=== PATIENT | male | born 1945 | race Caucasian/White ===

== ENCOUNTER 2019-12-10 14:31 | Observation (INO) | payer BC, MEDICARE ==
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
[2019-12-10 15:45] LABS: #Basophils 0.1 thou/uL (0.0-0.2); #Eosinphils 0.1 thou/uL (0.0-0.7); #Lymphocytes 1.6 thou/uL (1.20-3.40); #Monocytes 0.6 thou/uL (0.11-0.59); #Neutrophils 7.6 thou/uL (1.40-6.50); %Basophils 1.1 % (0.0-1.0); %Eosinophils 1.2 % (0.0-10.0); %Lymphocytes 16.3 % (21.0-51.0); %Monocytes 5.5 % (0.0-10.0); Hemoglobin 14.7 g/dL (14.0-18.0); Mean Corpuscular HGB CONC 33.4 g/dL (32.0-36.0); Mean Corpuscular Hemoglobin 32.6 pg (27.0-31.0); Mean Corpuscular Volume 97.6 fL (78.0-98.0); Mean Platelet Volume 7.9 fL (7.4-10.4); Platelet Count 221 thou/uL (130-400); RBC Distribution Width 12.3 % (11.5-14.5); Red Blood Cell (RBC) Count 4.52 mill/uL (4.70-6.10)
[2019-12-10 16:01] LABS: PTT 34.1 SEC (22.9-36.1); Prothrombin Time 13.4 SEC (12.0-14.7)
[2019-12-10 16:14] LABS: ALT (SGPT) 32 U/L (8-55); AST (SGOT) 40 U/L (5-34); Albumin 4.4 g/dL (3.4-4.8); Alkaline Phosphatase 56 U/L (40-110); Anion Gap 15 mmol/L (10-20); BUN (Urea Nitrogen) 20 mg/dL (8.4-25.7); Bilirubin, Total 0.4 mg/dL (0.2-1.2); Calc. Creatinine Clearance 0 mL/min (70-130); Calcium 9.4 mg/dL (7.8-10.44); Carbon Dioxide 28 mmol/L (23-31); Chloride 105 mmol/L (98-107); Estimated GFR-MDRD 58; Globulin 2.4 g/dL (2.4-3.5); Glucose 90 mg/dL (83-110); Potassium 4.7 mmol/L (3.5-5.1); Protein, Total 6.8 g/dL (5.8-8.1); Sodium 143 mmol/L (136-145)
[2019-12-10] MEDS ORDERED: Dextrose 5% in Water 1,000 ML IV PRN (16:24)
[2019-12-10] MEDS ORDERED: Dextrose 50% Abboject 50 ML SYRINGE SLOW IVP PRN (16:24)
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
[2019-12-10 17:52] VITALS: BMI 23.7
[2019-12-10] MEDS: Acetaminophen 325 MG TAB PO PRN (18:38)
--- NOTE | 2019-12-10 19:59 | CT ---
Exam: Head CT without contrast HISTORY: Follow-up subarachnoid hemorrhage COMPARISON: 12/10/2019 FINDINGS: Hemorrhage: Stable linear hyperdensity along the medial sulcus along the right frontal lobe. No addit ional areas of subarachnoid hemorrhage are appreciated. No abnormal hyperdensity in the sylvian fissure or interpeduncular cisterns. Brain parenchyma: Cortical ellington-white matter differentiation is preserved. No mass effect or midline shift. Basilar cisterns are patent. Ventricular system: Ventricles and sulci are patent and symmetric. Calvarium: Intact. Sinuses and mastoid air cells: Adequate aeration. IMPRESSION: Stable subtle hyperdensities involving the medial right frontal sulci. Small focus of subarachnoid he morrhage cannot be entirely excluded. Noncontrast brain MRI utilizing an axial gradient echo sequence would be beneficial. Additionally, axial FLAIR sequence would be beneficial. Transcribed Date/Time: 12/10/2019 8:06 PM
[2019-12-10] MEDS: Senokot S 8.6-50 MG TAB PO SCH (20:44)
[2019-12-11] MEDS: Acetaminophen 325 MG TAB PO PRN ×3 (00:22→12:25)
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
[2019-12-11 03:41] VITALS: BP 110/65; TEMP 97.7
--- NOTE | 2019-12-11 07:38 | CT ---
PRELIMINARY REPORT/DIRECT RADIOLOGY/EMERGENCY AFTER HOURS PROCEDURE: Head CT, axial images History: Follow-up subarachnoid hemorrhage Comparison: 12/10/19 Findings: What was previously described as a subtle linear hyperdensity within a sulcus along the me dial right frontal lobe is faintly seen and appears unchanged. This may merely represent subtle cortical mineralization or summation of normal cortical ribbon. There is no convincing evidence of n ew or increasing hemorrhage. The remainder the brain is unremarkable. Herring-white differentiation is preserved. Ventricular size and configuration is normal. No mass effect or midline shift. No ed lisa or cisternal effacement. Intact calvarium. Clear visualized paranasal sinuses, mastoid air cells and middle ear spaces. Impression: Stable CT appearance of the brain including what was previously described as sulcal hype rdensity along the medial right frontal lobe. While the possibility of trace subarachnoid hemorrhage was previously raised, this may merely represent cortical mineralization or artifactual hy perdensity related to summation of normal cortical ribbon within 2 closely opposed cerebral gyri. ELECTRONICALLY SIGNED BY: Thiago Mims MD Dec 11, 2019 5:53:42 AM FREIGHT ENGINEER FINAL REPORT: CT BRAIN WITHOUT CONTRAST History: Evaluate subarachnoid hemorrhage Comparison: CT brain prior day Findings: Previously noted foci of subarachnoid hemorrhage are no longer present. Impression: No definite subarachnoid hemorrhage appreciated. Transcribed Date/Time: 12/11/2019 7:54 AM
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
[2019-12-11] MEDS ORDERED: Polyethylene Glycol 3350 17 GM Packet PO SCH (09:00)
[2019-12-11] MEDS: Senokot S 8.6-50 MG TAB PO SCH (09:18)
== END 2019-12-11 12:50 | disposition home or self-care (01) ==
LOC: ERS 14:31 → SJJU 15:25
PROVIDERS: ADMIT Surgery; ATTEND Surgery
DX: S06.6X9A Traumatic subarachnoid hemorrhage with loss of consciousness of unspecified duration, initial encounter (principal); D68.32 Hemorrhagic disorder due to extrinsic circulating anticoagulants; T45.515A Adverse effect of anticoagulants, initial encounter; I49.9 Cardiac arrhythmia, unspecified; Z86.73 Personal history of transient ischemic attack (TIA), and cerebral infarction without residual deficits; Z79.01 Long term (current) use of anticoagulants; V28.4XXA Motorcycle driver injured in noncollision transport accident in traffic accident, initial encounter
CPT/HCPCS: 36415; 70450; 80053; 85025; 85610; 85730; G0378

== ENCOUNTER 2019-12-29 14:06 | Outpatient (CLI) | payer BC, MEDICARE ==
--- NOTE | 2019-12-29 14:28 | CT ---
CT HEAD WITHOUT IV CONTRAST COMPARISON: 12/11/2019 and 12/10/2019 HISTORY: Traumatic subarachnoid hemorrhage TECHNIQUE: Axial CT imaging at 5 mm intervals from vertex through skull base without contrast FINDINGS: There is no evidence of an acute infarction, hemorrhage, mass effect, or midline shift. Previously de scribed area of hyperdensity involving a right frontal lobe paramedian sulcus on study of 12/10/2019 is not visualized on this examination. The ventricular system is normal in size, shape, and position. Mild cerebral and cerebellar volume loss are present. Visualized paranasal sinuses are clear. Osseous structures appear intact. IMPRESSION: 1. No acute intracranial abnormality demonstrated.No intraparenchymal or extra-axial hemorrhage is se en on this exam. 2. Mild cerebral and cerebellar volume loss.
== END 2019-12-29 14:07 | disposition home or self-care (01) ==
LOC: BICCT 14:06
PROVIDERS: ATTEND Neurological Surgery
DX: S06.6X0D Traumatic subarachnoid hemorrhage without loss of consciousness, subsequent encounter (principal)
CPT/HCPCS: 70450

== ENCOUNTER 2020-12-17 16:49 | Emergency (ER) | payer BC, MEDICARE ==
[2020-12-17 17:18] LABS: #Basophils 0.1 thou/uL (0.0-0.2); #Eosinphils 0.1 thou/uL (0.0-0.7); #Lymphocytes 2.1 thou/uL (1.20-3.40); #Monocytes 0.6 thou/uL (0.11-0.59); #Neutrophils 3.3 thou/uL (1.40-6.50); %Basophils 1.4 % (0.0-1.0); %Eosinophils 1.4 % (0.0-10.0); %Lymphocytes 33.9 % (21.0-51.0); %Monocytes 9.7 % (0.0-10.0); %Neutrophils 53.7 % (42.0-75.0); Hemoglobin 14.2 g/dL (14.0-18.0); Mean Corpuscular HGB CONC 33.6 g/dL (32.0-36.0); Mean Corpuscular Hemoglobin 32.9 pg (27.0-31.0); Mean Platelet Volume 7.7 fL (7.4-10.4); Platelet Count 234 thou/uL (130-400); RBC Distribution Width 12.3 % (11.5-14.5); Red Blood Cell (RBC) Count 4.31 mill/uL (4.70-6.10); White Blood Cell (WBC) Count 6.2 thou/uL (4.8-10.8)
[2020-12-17 17:39] LABS: ALT (SGPT) 27 U/L (8-55); AST (SGOT) 22 U/L (5-34); Albumin 3.9 g/dL (3.4-4.8); Alkaline Phosphatase 59 U/L (40-110); Anion Gap 12 mmol/L (10-20); BUN (Urea Nitrogen) 19 mg/dL (8.4-25.7); Bilirubin, Total 0.4 mg/dL (0.2-1.2); CK (CPK) 167 U/L (30-200); Calc. Creatinine Clearance 0 mL/min (70-130); Calcium 8.8 mg/dL (7.8-10.44); Carbon Dioxide 29 mmol/L (23-31); Chloride 106 mmol/L (98-107); Globulin 2.3 g/dL (2.4-3.5); Glucose 95 mg/dL (83-110); Lipase 22 U/L (8-78); Potassium 4.3 mmol/L (3.5-5.1); Protein, Total 6.2 g/dL (5.8-8.1); Sodium 143 mmol/L (136-145)
== END 2020-12-17 18:29 | disposition home or self-care (01) ==
LOC: ERS 16:49
DX: I48.91 Unspecified atrial fibrillation (principal); Z79.899 Other long term (current) drug therapy
CPT/HCPCS: 80053; 82550; 83690; 83735; 84484; 85025; 93005

== ENCOUNTER 2021-03-06 08:57 | Emergency (ER) | payer BC, MEDICARE ==
[2021-03-06 09:39] LABS: #Eosinphils 0.1 thou/uL (0.0-0.7); #Lymphocytes 0.3 thou/uL (1.20-3.40); #Monocytes 0.4 thou/uL (0.11-0.59); #Neutrophils 11.6 thou/uL (1.40-6.50); %Basophils 0.1 % (0.0-1.0); %Eosinophils 0.5 % (0.0-10.0); %Lymphocytes 2.6 % (21.0-51.0); %Monocytes 3.2 % (0.0-10.0); %Neutrophils 93.7 % (42.0-75.0); Hemoglobin 16.2 g/dL (14.0-18.0); Mean Corpuscular HGB CONC 33.5 g/dL (32.0-36.0); Mean Corpuscular Hemoglobin 33.6 pg (27.0-31.0); Mean Platelet Volume 8.2 fL (7.4-10.4); Platelet Count 209 thou/uL (130-400); RBC Distribution Width 12.4 % (11.5-14.5); Red Blood Cell (RBC) Count 4.81 mill/uL (4.70-6.10); White Blood Cell (WBC) Count 12.3 thou/uL (4.8-10.8)
[2021-03-06 11:19] LABS: AST (SGOT) 21 U/L (5-34); Anion Gap 13 mmol/L (10-20); Globulin 2.4 g/dL (2.4-3.5); Potassium 5.1 mmol/L (3.5-5.1); Protein, Total 6.5 g/dL (5.8-8.1)
[2021-03-06 12:02] LABS: Albumin 4.1 g/dL (3.4-4.8)
[2021-03-06 12:03] LABS: Chloride 104 mmol/L (98-107); Sodium 138 mmol/L (136-145)
[2021-03-06 12:04] LABS: Calcium 9.1 mg/dL (7.8-10.44); Glucose 119 mg/dL (83-110)
[2021-03-06 12:06] LABS: Bilirubin, Total 0.7 mg/dL (0.2-1.2); Carbon Dioxide 28 mmol/L (23-31)
[2021-03-06 12:07] LABS: Alkaline Phosphatase 55 U/L (40-110)
[2021-03-06 12:08] LABS: Calc. Creatinine Clearance 0 mL/min (70-130)
[2021-03-06 12:09] LABS: BUN (Urea Nitrogen) 28 mg/dL (8.4-25.7)
[2021-03-06 12:10] LABS: ALT (SGPT) 24 U/L (8-55)
== END 2021-03-06 12:35 | disposition home or self-care (01) ==
LOC: ERS 08:57
DX: S00.01XA Abrasion of scalp, initial encounter (principal); I48.91 Unspecified atrial fibrillation; Z79.899 Other long term (current) drug therapy; W18.30XA Fall on same level, unspecified, initial encounter; Y92.002 Bathroom of unspecified non-institutional (private) residence as the place of occurrence of the external cause
CPT/HCPCS: 36415; 70450; 72125; 80053; 84484; 85025; 93005